=== PATIENT | female | born 1955 | race African-American/Black ===

== ENCOUNTER 2022-07-08 07:32 | Emergency (ER) | payer MEDICAID, SELFPAY ==
[2022-07-08 07:33] VITALS: BP 124/81; PULSE 81; RESP 18; TEMP 36.6; O2SAT 96; BMI 32.0
--- NOTE | 2022-07-08 07:45 | RAD_ITS ---
STUDY: X-RAY - BILATERAL ANKLES REASON FOR EXAM: Female, 66 years old. Chronic pain. TECHNIQUE - RIGHT ANKLE: 3 view(s) of the right ankle were obtained. TECHNIQUE - LEFT ANKLE: 3 view(s) of the left ankle were obtained. COMPARISON: None. FINDINGS - RIGHT ANKLE: Normal visualized distal tibia and fibula. Normal medial and lateral malleoli. Normal tibiotalar articulation and ankle mortise. Talar neck beak. Plantar spur. The visualized subtalar, talonavicular, calcaneocuboid and tarsal articulations are normal. Lateral soft tissue swelling. FINDINGS - LEFT ANKLE: Normal visualized distal tibia and fibula. Normal medial and lateral malleoli. Normal tibiotalar articulation and ankle mortise. Calcaneal spur. The visualized subtalar, talonavicular, calcaneocuboid and tarsal articulations are normal. Lateral soft tissue swelling. RAD/Ankle min 3 Views IMPRESSION: Right Ankle: Soft tissue swelling. Calcaneal spur. Talar neck beak. Left Ankle: Soft tissue swelling. Plantar spur. Electronically Signed: Marlo Earl MD at 8:43 EST ,
--- NOTE | 2022-07-08 07:45 | RAD_ITS ---
STUDY: X-RAY - RIGHT KNEE REASON FOR EXAM: Female, 66 years old. Chronic knee pain. TECHNIQUE: 4 view(s) of the knee. COMPARISON: None. FINDINGS: Degenerative spur formation along the distal medial femoral condyle. Degenerative spur formation along the medial plateau. Normal proximal tibiofibular articulation. There is severe degenerative arthrosis of the medial femorotibial compartment with severe joint space narrowing. Normal lateral femorotibial compartment. There is severe degenerative arthrosis of the patellofemoral articulation. The soft tissue structures are unremarkable. RAD/Knee 4 or More Views IMPRESSION: Degenerative arthrosis. Electronically Signed: Marlo Earl MD at 8:38 EST ,
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
[2022-07-08] MEDS: predniSONE 20 MG Tablet 40 MG PO (09:18)
[2022-07-08] MEDS: Pantoprazole Sodium 40 MG Tablet PO (09:18)
--- NOTE | 2022-07-08 09:38 | ED.RN ---
PT REQUESTED I WANT MY WHOLE BODY CHECKED OUT. DR RAMIRES.PT STATES HAS NO PLACE TO GO DURING THE DAY AND HAS NO RIDE BACK TO [facility]
--- NOTE | 2022-07-08 10:13 | ED.RN ---
[facility] staff contacted [facility] to see if they can provide ride back. [facility] states pt is not a resident at the facility but is staying at the warming center. staff unable to assist pt with ride
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
== END 2022-07-08 11:05 | disposition home or self-care (01) ==
PROVIDERS: Emergency Provider Emergency Medicine; Visit Provider Emergency Medicine
DX: M17.11 Unilateral primary osteoarthritis, right knee (principal); M19.071 Primary osteoarthritis, right ankle and foot; M19.072 Primary osteoarthritis, left ankle and foot; I10 Essential (primary) hypertension; M10.9 Gout, unspecified; I25.2 Old myocardial infarction; F17.210 Nicotine dependence, cigarettes, uncomplicated; Z79.899 Other long term (current) drug therapy
CPT/HCPCS: 73564; 73610; 99284